=== PATIENT | female | born 1980 | race Caucasian/White ===

== ENCOUNTER 2016-10-27 20:07 | Emergency (ER) | payer OTHER ==
[~2016-10-27] VITALS: Ht 165.1 cm; Wt 54.4 kg
--- NOTE | 2016-10-27 20:45 | NUR ---
PT A/OX4 BREATHING EFFORTLESSLY ON ROOM AIR, PT STATES SHE HAS BEEN HVAING FLU LIKE SYMP[TOMS X 2 DAYS AND STATES SHE WAS AT AN ER YESTERDAY ANDTHEY GAVE HER COUGH MEDICINE WITH CODEINE AND TAMIFLU BUT SHE HAS NOT PICKED UP THE PRESCRIPTION, PT IN GOWN ON MONITOR, MADE AWARE WILL CONTINUE TO MONITOR.
[2016-10-27] MEDS ORDERED: ONDANSETRON 4 MG TAB.RAPDIS SL ONE (21:00)
[2016-10-27] MEDS ORDERED: NAPROXEN 250 MG TABLET PO ONE (21:00)
[2016-10-27] MEDS ORDERED: ONDANSETRON 4 MG TAB.RAPDIS ONE (21:02)
[2016-10-27] MEDS ORDERED: NAPROXEN 250 MG TABLET ONE (21:02)
[2016-10-27] MEDS ORDERED: IV SET PRIMARY 1 EA INFUS.SET MC ONE (21:10)
[2016-10-27] MEDS ORDERED: IV NS 0.9% 500 ML IV ONE (21:10)
[2016-10-27] MEDS ORDERED: IV NS 0.9% 1,000 ML BAG IV ONE (21:30)
[2016-10-27 22:07] VITALS: BP 108/72
== END 2016-10-27 22:07 | disposition home or self-care (01) ==
LOC: ER 20:09
DX: J06.9 Acute upper respiratory infection, unspecified (principal); R11.2 Nausea with vomiting, unspecified; Z88.8 Allergy status to other drugs, medicaments and biological substances; B34.9 Viral infection, unspecified
CPT/HCPCS: A4606; J7040; Q0162; Z7610

== ENCOUNTER 2016-12-10 17:09 | Inpatient (IN) | payer OTHER ==
[~2016-12-10] VITALS: Ht 162.6 cm; Wt 54.4 kg
--- NOTE | 2016-12-10 17:20 | NUR ---
lower abdominal LLQ pain/crampins since morning. nad noted. pt aao x4,amb with steady gait. rr even and unlabored. pain10/10. pt placed in gown and monitor. dr shu at bedside for eval.
[2016-12-10] MEDS ORDERED: IV NS 0.9% 1,000 ML ONE (17:26)
[2016-12-10] MEDS ORDERED: HYDROMORPHONE 1 MG/1 ML DISP.SYRIN ONE ×2 (17:26→19:06)
[2016-12-10] MEDS ORDERED: ONDANSETRON HCL/PF 4 MG/2 ML VIAL ONE ×3 (17:26→23:29)
[2016-12-10] MEDS ORDERED: IV SET PRIMARY 1 EA INFUS.SET MC ONE (17:26)
[2016-12-10] MEDS ORDERED: ONDANSETRON HCL/PF 4 MG/2 ML VIAL IVP ONE (17:30)
[2016-12-10] MEDS ORDERED: IV NS 0.9% 1,000 ML BAG IV ONE (17:30)
[2016-12-10] MEDS ORDERED: HYDROMORPHONE 1 MG/1 ML DISP.SYRIN IV ONE ×2 (17:30→19:30)
--- NOTE | 2016-12-10 17:40 | NUR ---
pelvic exam done by md and claudia stallworth
[2016-12-10 17:43] LABS: BASOPHILS # (AUTO) 0.1 /CMM (0.0-0.2); BASOPHILS % (AUTO) 0.7 % (0.0-2.0); EOSINOPHILS % (AUTO) 0.2 % (0.0-6.0); HEMATOCRIT 42 % (33-45); HEMOGLOBIN 14.5 g/dL (11.5-14.8); LYMPHOCYTES # (AUTO) 1.9 /CMM (0.8-4.8); LYMPHOCYTES % (AUTO) 15.8 % (20.0-44.0); MEAN CORPUSCULAR HEMOGLOBIN 30 PG (26.0-33.0); MEAN CORPUSCULAR HGB CONC 34 g/dl (31.0-36.0); MEAN CORPUSCULAR VOLUME 87 fL (82-100); MONOCYTES # (AUTO) 0.4 /CMM (0.1-1.30); MONOCYTES % (AUTO) 3.3 % (2.0-12.0); NEUTROPHILS # (AUTO) 9.6 /CMM (1.8-8.9); PLATELET COUNT (AUTO) 273 /CMM (150-450); RDW COEFFICIENT OF VARIATION 12.9 (11.5-15.0); RED BLOOD CELL COUNT(AUTO) 4.85 MIL/uL (4.0-5.2)
[2016-12-10 17:54] LABS: CALCIUM, SERUM 8.7 mg/dL (8.5-10.1); CREATININE 0.9 mg/dL (0.6-1.3); POTASSIUM 3.6 mmol/L (3.5-5.1)
[2016-12-10 18:42] LABS: APPEARANCE,URINE Clear (CLEAR); BILIRUBIN,URINE Negative (NEGATIVE); BLOOD, URINE Trace-intact Ery/uL (NEGATIVE); COLOR,URINE Yellow (YELLOW); KETONES,URINE 40 (NEGATIVE); LEUKOCYTE ESTERASE ,URINE Negative (NEGATIVE); NITRITE, URINE Negative (NEGATIVE); PROTEIN,URINE Negative (NEGATIVE); UGLUCOSE Negative (NEGATIVE); UROBILINOGEN,URINE 0.2 EU/dL (0.2)
[2016-12-10 18:47] LABS: PREGNANCY TEST URINE QUAL NEGATIVE (NEGATIVE)
[2016-12-10 19:01] LABS: ADD URINE CULTURE NO; BACTERIA,URINE Few /HPF (None Seen); RBC,URINE 2-3/HPF /HPF (0-2); SQUAMOUS EPITHELIAL CELL,UR Moderate /HPF (None Seen); URINE AMORPHOUS URATE Many /HPF (None Seen); WBC,URINE 0-2 /HPF (0-3)
[2016-12-10 19:02] LABS: MUCUS,URINE Few /LPF (None Seen)
--- NOTE | 2016-12-10 19:23 | NUR ---
MEDICATED PT ORDERED
[2016-12-10] MEDS ORDERED: ONDANSETRON HCL/PF - ER 4 MG/2 ML VIAL IV ONE (21:00)
--- NOTE | 2016-12-10 21:29 | NUR ---
[facility] TRANSPORT PT TO [facility] FOR CT SCAN
--- NOTE | 2016-12-10 22:10 | NUR ---
PT RETURNED FROM CT VIA AMBULANCE
--- NOTE | 2016-12-10 22:23 | NUR ---
CALLED [facility] FOR AN UPDATE ON CT READING
--- NOTE | 2016-12-10 22:53 | NUR ---
DR IGLESIAS ON PHONE WITH DR DURANT
--- NOTE | 2016-12-10 22:56 | NUR ---
CALLED NURSING [facility] FOR [facility]
--- NOTE | 2016-12-10 23:06 | NUR ---
PAGED DR NAKUL LOCKE
[2016-12-10] MEDS ORDERED: MORPHINE SULFATE INJ 4 MG/ML DISP.SYRIN ONE (23:29)
[2016-12-10] MEDS ORDERED: ONDANSETRON HCL/PF 4 MG/2 ML VIAL IV ONE (23:30)
[2016-12-10] MEDS ORDERED: MORPHINE SULFATE INJ 2 MG/ML DISP.SYRIN IV ONE (23:30)
--- NOTE | 2016-12-10 23:36 | NUR ---
MEDICATED PT ORDERED
--- NOTE | 2016-12-10 23:38 | NUR ---
TRNASPORTED PT TO [facility] WITHOUT INCIDENT
--- NOTE | 2016-12-10 23:40 | NUR ---
MS RN ADMITTING NOTE RECEIVED PT COMING FROM ER VIA [facility], WITH ABDOMINAL PAIN, CT REVEALED OVARIAN MASS, PT WAS GIVEN DILAUDID AND MORPHINE IN THE ER, SHE STATES THAT PAIN IS UNDER CONTROL CURRENTLY, WILL ATTEND TO NEEDS PROMPTLY, SAFETY MEASURES WILL BE KEPT IN PLACE.
[2016-12-11] MEDS ORDERED: ZOLPIDEM TARTRATE 5 MG TABLET PO PRN ×3 (00:30→01:30)
[2016-12-11] MEDS ORDERED: Z GUARD REMEDY 2 OZ OINT TP PRN (00:30)
[2016-12-11] MEDS ORDERED: MAG HYDROX/AL HYDROX/SIMETH 30 ML UDC PO PRN (00:30)
[2016-12-11] MEDS ORDERED: MAGNESIUM HYDROXIDE 30 ML UDC PO PRN (00:30)
[2016-12-11] MEDS ORDERED: ACETAMINOPHEN 325 MG TABLET PO PRN (00:30)
[2016-12-11] MEDS ORDERED: ONDANSETRON HCL/PF 4 MG/2 ML VIAL IVP PRN (00:30)
[2016-12-11] MEDS ORDERED: IV D5W 50 ML IV ONE (00:38)
[2016-12-11] MEDS ORDERED: CEFTRIAXONE 1 G VIAL ONE (00:38)
[2016-12-11] MEDS ORDERED: IV SET PRIMARY PUMP SET 1 EA INFUS.SET MC ONE (00:41)
[2016-12-11] MEDS ORDERED: SECONDARY IV SET 1 EA INFUS.SET MC ONE ×2 (00:41→02:05)
[2016-12-11] MEDS ORDERED: IV NS 0.9% 250 ML IV ONE (00:42)
[2016-12-11] MEDS: CEFTRIAXONE 1 G in IV D5W 50 ML IV SCH (00:51)
[2016-12-11] MEDS ORDERED: IV NS 0.9% 1,000 ML BAG IV PRN (01:30)
[2016-12-11] MEDS ORDERED: METRONIDAZOLE 500MG/ NS 100ML 100 ML IV ONE (01:41)
[2016-12-11] MEDS ORDERED: ZOLPIDEM TARTRATE 5 MG TABLET ONE (01:44)
[2016-12-11] MEDS: METRONIDAZOLE 500MG/ NS 100ML 500 MG in PREMIX 1 EA IV SCH ×3 (01:51→21:58)
--- NOTE | 2016-12-11 06:49 | NUR ---
PT REMAINED STABLE DURING NIGHT WILL ENDORSE TO AM NURSE FOR COREY.
--- NOTE | 2016-12-11 07:30 | NUR ---
RECEIVED PT. ALERT AND ORIENTED X 3.STATES OCC. NAUSEA,BUT REFUSING MED.ADDITIONALLY STATES VERY BAD PAIN WHEN GETTING OOB.REFUSES PAIN MED.
[2016-12-11 08:00] VITALS: BP 95/58
[2016-12-11] MEDS: PANTOPRAZOLE 40 MG TABLET.DR PO SCH ×2 (09:23→09:30)
[2016-12-11 14:34] LABS: BASOPHILS % (AUTO) 0.4 % (0.0-2.0); EOSINOPHILS % (AUTO) 0.4 % (0.0-6.0); HEMATOCRIT 29 % (33-45); HEMOGLOBIN 9.8 g/dL (11.5-14.8); LYMPHOCYTES # (AUTO) 1.2 /CMM (0.8-4.8); LYMPHOCYTES % (AUTO) 15.1 % (20.0-44.0); MEAN CORPUSCULAR HEMOGLOBIN 29 PG (26.0-33.0); MEAN CORPUSCULAR HGB CONC 34 g/dl (31.0-36.0); MEAN CORPUSCULAR VOLUME 87 fL (82-100); MONOCYTES # (AUTO) 0.7 /CMM (0.1-1.30); MONOCYTES % (AUTO) 8.8 % (2.0-12.0); NEUTROPHILS % (AUTO) 75.3 % (43.0-81.0); PLATELET COUNT (AUTO) 203 /CMM (150-450); RDW COEFFICIENT OF VARIATION 13.7 (11.5-15.0); RED BLOOD CELL COUNT(AUTO) 3.35 MIL/uL (4.0-5.2)
[2016-12-11 14:43] LABS: CALCIUM, SERUM 8.1 mg/dL (8.5-10.1); CREATININE 0.9 mg/dL (0.6-1.3); POTASSIUM 3.8 mmol/L (3.5-5.1)
--- NOTE | 2016-12-11 15:30 | NUR ---
MIKAYLA MONTEMAYOR IN TO SEE PT. STATES DR. DURANT TO SEE PT.
[2016-12-11 16:00] VITALS: BP 96/59
--- NOTE | 2016-12-11 19:30 | NUR ---
MS RN INITIAL NOTE RECEIVED PT AWAKE AND ALERT, ORIENTED X4, PT IS SCHEDULE TO SEE DIGITAL PRINTER OPERATOR MARIUSZ PER [employer]OURER SIM, PT IS ANXIOUS TO SEE WHEN WILL DIGITAL PRINTER OPERATOR WILL COME IN, WILL ENQUIRE WITH DR KELSEY ABOUT ETA, PT IS CLEAN/DRY AND COMFORTABLE, SAFETY MEASURES WILL BE MAINTAINED AT ALL TIMES.
[2016-12-11 19:56] VITALS: BP 110/67
--- NOTE | 2016-12-11 20:39 | NUR ---
PT INQUIRED ABOUT LAB RESULTS, HGB WENT FROM 14.5 TO 9.8, PT BECAME CONCERNED THAT ABDOMINAL BLEEDING COULD BE HAPPENING, SHE IS REQUESTING TO BE TRANSFER TO [facility], SPOKE TO DR KELSEY REGARDING PT'S LABS AND PT'S REQUEST TO BE TRANSFERRED, DR KELSEY STATED THAT HE DOESN'T BELIEVE THERE'S ANY INDICATION OF BLEEDING, PT HAS THE OPTION TO WAIT UNTIL TOMORROW IN AM AND HAVE CASE MANAGEMENT ARRANGE FOR TRANSFER TO [facility] OR IF SHE DESIRES SHE CAN SIGN AN AMA FORM AND CAN GO TO THE [facility] ER TO BE ADMITTED.
[2016-12-11] MEDS ORDERED: MIDAZOLAM HCL 2 MG/2ML VIAL ONE (22:39)
[2016-12-11] MEDS ORDERED: ROCURONIUM BROMIDE 50 MG/5 ML ONE (22:40)
[2016-12-11] MEDS ORDERED: FENTANYL PF 100MCG/2ML AMPUL ONE (22:40)
[2016-12-11] MEDS ORDERED: SUCCINYLCHOLINE CHLORIDE 20 MG/ML VIAL ONE (22:40)
[2016-12-11] MEDS ORDERED: SEVOFLURANE 250 ML BOTTLE IH ONE (22:43)
--- NOTE | 2016-12-11 23:00 | NUR ---
DR. MARIUSZ WILSON AT BEDSIDE EXPLAINING TO PT AND FAMILY THAT SURGERY IS RECOMMENDED, PT CONSENTED TO LAPAROSCOPIC LEFT OVARIAN CYSTECTOMY, SHE WILL BE TAKEN TO SURGERY SHORTLY.
[2016-12-11 23:05] LABS: BASOPHILS % (AUTO) 0.2 % (0.0-2.0); EOSINOPHILS % (AUTO) 0.8 % (0.0-6.0); HEMATOCRIT 31 % (33-45); HEMOGLOBIN 10.4 g/dL (11.5-14.8); LYMPHOCYTES # (AUTO) 2.1 /CMM (0.8-4.8); LYMPHOCYTES % (AUTO) 31.8 % (20.0-44.0); MEAN CORPUSCULAR HEMOGLOBIN 29 PG (26.0-33.0); MEAN CORPUSCULAR HGB CONC 33 g/dl (31.0-36.0); MEAN CORPUSCULAR VOLUME 87 fL (82-100); MONOCYTES # (AUTO) 0.6 /CMM (0.1-1.30); MONOCYTES % (AUTO) 8.4 % (2.0-12.0); NEUTROPHILS # (AUTO) 3.9 /CMM (1.8-8.9); NEUTROPHILS % (AUTO) 58.8 % (43.0-81.0); PLATELET COUNT (AUTO) 207 /CMM (150-450); RDW COEFFICIENT OF VARIATION 14.1 (11.5-15.0); RED BLOOD CELL COUNT(AUTO) 3.61 MIL/uL (4.0-5.2); WHITE BLOOD COUNT (AUTO) 6.7 K/uL (4.3-11.0)
--- NOTE | 2016-12-11 23:20 | NUR ---
PT TAKEN TO SURGERY, WILL AWAIT FOR UPDATE.
[2016-12-11 23:30] LABS: INR 0.93 (0.87-1.13); PROTHROMBIN TIME 9.9 SECS (9.5-12.7)
--- NOTE | 2016-12-11 23:30 | NUR ---
DR KELSEY AT BEDSIDE EXPLAINING TO PT AND FAMILY OPTIONS FOR COURSE OF TREATMENT, HE WILL CONTACT DR DURANT TAX ANALYST TO COME AND CONSULT, PT HAS INCREASE ABDOMINAL TENDERNESS. Addendum: 12/12/16 at [id number] by BACILIO SUAREZ RN NOTE FOR [id number]
[2016-12-11] MEDS ORDERED: BUPIVACAINE MPF 0.5% W/EPI INJ 30 ML VIAL ONE (23:32)
[2016-12-11] MEDS ORDERED: HYDROMORPHONE INJ 2 MG/ML DISP.SYRIN ONE (23:40)
[2016-12-12] MEDS ORDERED: FENTANYL PF 100MCG/2ML AMPUL ONE (00:21)
[2016-12-12] MEDS ORDERED: MEPERIDINE HCL/PF 50 MG/ML DISP.SYRIN ONE (00:24)
--- NOTE | 2016-12-12 00:30 | NUR ---
PT BACK FROM SURGERY, SLEEPING BUT EASILY AROUSED, NO PAIN OR RESPIRATORY DISTRESS NOTED, WILL CONTINUE TO MONITOR CLOSELY.
[2016-12-12] MEDS ORDERED: IV LR 1000 ML 1,000 ML ONE (01:27)
[2016-12-12] MEDS ORDERED: IV SET PRIMARY PUMP SET 1 EA INFUS.SET MC ONE (01:28)
[2016-12-12] MEDS ORDERED: ONDANSETRON HCL/PF 8 MG in IV D5W 50 ML IV PRN (01:30)
[2016-12-12] MEDS ORDERED: IV LR 1000 ML 1,000 ML IV ONE (01:30)
[2016-12-12] MEDS ORDERED: SECONDARY IV SET 1 EA INFUS.SET MC ONE ×2 (01:50→06:07)
[2016-12-12] MEDS: CEFTRIAXONE 1 G in IV D5W 50 ML IV SCH (02:01)
[2016-12-12] MEDS ORDERED: LORAZEPAM INJ 2 MG/ML VIAL ONE (04:54)
[2016-12-12] MEDS ORDERED: LORAZEPAM INJ 2 MG/ML VIAL IV PRN (05:00)
--- NOTE | 2016-12-12 05:00 | NUR ---
PT STATES HAVING A PANIC ATTACK, HR RAISING UP TO 110, SHE IS REQUESTING MD CARI MADE AWARE, NEW ORDER FOR ATIVAN 0.5MG IV Q6HR PRN RECEIVED, WILL PROVIDE TO PT PROMPTLY.
[2016-12-12] MEDS: METRONIDAZOLE 500MG/ NS 100ML 500 MG in PREMIX 1 EA IV SCH ×3 (06:08→20:36)
--- NOTE | 2016-12-12 06:53 | NUR ---
MS RN CLOSING NOTE PT IS STABLE AND COMFORTABLE, STATES NO ANXIETY AFTER ATIVAN WAS PROVIDED, VITAL SIGNS WNL, NO PAIN OR RESPIRATORY DISTRESS REPORTED, ALL NEEDS HAVE BEEN MET, WILL ENDORSE TO AM NURSE FOR COREY.
[2016-12-12 06:54] LABS: HEMATOCRIT 30 % (33-45); HEMOGLOBIN 10.2 g/dL (11.5-14.8); LYMPHOCYTES # (AUTO) 0.4 /CMM (0.8-4.8); LYMPHOCYTES % (AUTO) 5.5 % (20.0-44.0); MEAN CORPUSCULAR HEMOGLOBIN 30 PG (26.0-33.0); MEAN CORPUSCULAR HGB CONC 34 g/dl (31.0-36.0); MEAN CORPUSCULAR VOLUME 88 fL (82-100); MONOCYTES # (AUTO) 0.1 /CMM (0.1-1.30); MONOCYTES % (AUTO) 1.3 % (2.0-12.0); NEUTROPHILS # (AUTO) 6.8 /CMM (1.8-8.9); NEUTROPHILS % (AUTO) 93.2 % (43.0-81.0); PLATELET COUNT (AUTO) 186 /CMM (150-450); RDW COEFFICIENT OF VARIATION 13.8 (11.5-15.0); RED BLOOD CELL COUNT(AUTO) 3.44 MIL/uL (4.0-5.2); WHITE BLOOD COUNT (AUTO) 7.3 K/uL (4.3-11.0)
[2016-12-12 07:10] LABS: CALCIUM, SERUM 7.9 mg/dL (8.5-10.1); CREATININE 0.7 mg/dL (0.6-1.3); MAGNESIUM 1.8 mg/dL (1.8-2.4)
[2016-12-12] MEDS: PANTOPRAZOLE 40 MG TABLET.DR PO SCH (07:30)
--- NOTE | 2016-12-12 07:40 | NUR ---
RN Notes Received on bed awake,alert and oriented. Not in any form of distress. Breathing is even and unlabored. With complain of crampy abdomen but decline pain medication at this time. Abdomen is soft and tender. With 3 lap incisional site with border mepilex clean and dry. no bleeding noted. Encouraged deep breathing and coughing exercises. Encouraged early ambulation.With IV access on right hand gg 22 patent and intact. With ongoing IVF of LR at 125 cc/hr infusing well. No other complain at this time.
[2016-12-12 07:45] LABS: THYROID STIMULATING HORMONE 0.894 uIU/mL (0.358-3.74)
[2016-12-12 08:00] VITALS: BP 100/51
--- NOTE | 2016-12-12 09:20 | NUR ---
RN Notes Assisted to the bathroom for early ambulation. Agreed to ambulate to the hallway later.
[2016-12-12] MEDS ORDERED: K PHOS NEUTRAL 250 MG TABLET PO ONE (12:30)
[2016-12-12] MEDS ORDERED: IV NS 0.9% 1,000 ML BAG IV PRN (13:30)
[2016-12-12] MEDS ORDERED: IV NS 0.9% 1,000 ML IV PRN (13:30)
[2016-12-12] MEDS ORDERED: IBUPROFEN 400 MG TABLET PO PRN (13:30)
[2016-12-12] MEDS: HYDROCODONE/APAP 5/325MG 1 EACH TABLET PO PRN ×2 (13:33→20:32)
[2016-12-12 16:00] VITALS: BP 118/72
[2016-12-12] MEDS: LACTOBACILLUS RHAMNOSUS GG 1 EACH CAP.SPRINK PO SCH (17:32)
--- NOTE | 2016-12-12 18:08 | NUR ---
RN Notes First day post lap ovarian cystectomy. Patient ambulatory to bathroom and to hallway, tolerating well. Geraldine given earlier with no ASE noted. Needs anticipated. No untoward symptom noted within the shift. Will endorse to registered nurse first assistant nurse for the continuity of care. Call light placed within easy reach.
--- NOTE | 2016-12-12 19:30 | NUR ---
RN NOTES RECEIVED PT. AWAKE ON BED, A/OX4, S/P LAP OVARIAN CYST REMOVAL, WITH 3 LAP INCISIONAL WITH DRESSING, DRY AND INTACT, AMBULATORY , CALL LIGHT WITHIN REACH, SIDERAILS UPX2 CONTINUE TO MONITOR
[2016-12-12 20:00] VITALS: BP 101/66
--- NOTE | 2016-12-12 20:26 | NUR ---
RN NOTES PT. IS COMPLAINING OF TERRIBLE PAIN AND TALKED TO DR. KELSEY- MORPHINE 2MG IV PRN ORDERED, ORDER NOTED AND CARRIED OUT
[2016-12-12] MEDS ORDERED: MORPHINE SULFATE INJ 2 MG/ML DISP.SYRIN IV PRN (20:30)
[2016-12-12 20:48] VITALS: BP 101/66
[2016-12-12] MEDS ORDERED: MENTHOL/CETYLPYRD (CEPACOL) 1 LOZ LOZENGE ONE (22:29)
[2016-12-12] MEDS ORDERED: MENTHOL/CETYLPYRD (CEPACOL) 1 LOZ LOZENGE PO PRN (22:30)
--- NOTE | 2016-12-12 22:30 | NUR ---
RN NOTES SPOKE TO DR. KELSEY AND INFORMED HIM REGARDING PT COMPLAINING OF SORE THROAT. DR. KELSEY ORDERED CEPACOL PO PRN, ORDER NOTED AND CARRIED OUT
--- NOTE | 2016-12-12 22:39 | NUR ---
RN NOTES COMPLAINING OF SORE THROAT- CEPACOL 1 TAB GIVEN ORDERED
[2016-12-13] MEDS: CEFTRIAXONE 1 G in IV D5W 50 ML IV SCH (00:33)
[2016-12-13] MEDS: HYDROCODONE/APAP 5/325MG 1 EACH TABLET PO PRN ×4 (05:14→21:11)
--- NOTE | 2016-12-13 05:14 | NUR ---
RN NOTES COMPLAINED OF PAIN ON SURGICAL SITE- NORCO 5/325 MG PO GIVEN ORDERED, V/S STABLE
[2016-12-13] MEDS ORDERED: NA PHOS,M-B/NA PHOS,DI-BA 1 EA ENEMA RC ONE (05:30)
--- NOTE | 2016-12-13 05:30 | NUR ---
RN NOTES PT COMPLAINED OF ABDOMINAL PAIN BECAUSE SHE CAN'T PASS GAS, I OFFERED MOM BUT PT'S WANTS ME TO CALL DR. KELSEY IF IT'S BETTER TO GET ENEMA.. SPOKE TO DR. BARRIOS AND INFORMED HIM REGARDING PT'S CONCERNED. DR. KELSEY ORDERED ENEMA X1 ORDER NOTED AND CARRIED OUT
--- NOTE | 2016-12-13 06:00 | NUR ---
RN NOTES TALKED TO THE PT. AND TOLD HER THAT THE DOCTOR ALREADY ORDERED ENEMA SINCE SHE'S REQUESTING IT. PT STATED THAT SHE'S GOING TO WAIT UNTIL THE PAIN MEDICATION KICKS IN
[2016-12-13] MEDS: METRONIDAZOLE 500MG/ NS 100ML 500 MG in PREMIX 1 EA IV SCH ×2 (06:03→12:27)
[2016-12-13 06:40] LABS: BASOPHILS % (AUTO) 0.4 % (0.0-2.0); EOSINOPHILS # (AUTO) 0.1 /CMM (0.0-0.7); EOSINOPHILS % (AUTO) 1.1 % (0.0-6.0); HEMATOCRIT 27 % (33-45); HEMOGLOBIN 9.3 g/dL (11.5-14.8); LYMPHOCYTES # (AUTO) 2.2 /CMM (0.8-4.8); MEAN CORPUSCULAR HEMOGLOBIN 30 PG (26.0-33.0); MEAN CORPUSCULAR HGB CONC 34 g/dl (31.0-36.0); MEAN CORPUSCULAR VOLUME 88 fL (82-100); MONOCYTES # (AUTO) 0.4 /CMM (0.1-1.30); MONOCYTES % (AUTO) 7.7 % (2.0-12.0); NEUTROPHILS # (AUTO) 2.8 /CMM (1.8-8.9); NEUTROPHILS % (AUTO) 50.8 % (43.0-81.0); PLATELET COUNT (AUTO) 156 /CMM (150-450); RDW COEFFICIENT OF VARIATION 13.7 (11.5-15.0); RED BLOOD CELL COUNT(AUTO) 3.13 MIL/uL (4.0-5.2); WHITE BLOOD COUNT (AUTO) 5.5 K/uL (4.3-11.0)
--- NOTE | 2016-12-13 06:45 | NUR ---
RN NOTES ASKED HER AGAIN REGARDING FLEET ENEMA BUT PT STATED THAT SHE WANTS TO SLEEP FIRST, MORNING CARE RENDERED. ENDORSED TO [facility] NURSE FOR CONTINUITY OF CARE
[2016-12-13 07:00] LABS: CALCIUM, SERUM 8.1 mg/dL (8.5-10.1); CREATININE 0.6 mg/dL (0.6-1.3); PHOSPHORUS 2.7 mg/dL (2.5-4.9); POTASSIUM 3.5 mmol/L (3.5-5.1)
--- NOTE | 2016-12-13 07:15 | NUR ---
MS RN INITIAL NOTES REPORT RECEIVED AT THE BEDSIDE. PATIENT IS SLEEPING. NO SOB OR DISTRESS NOTED AT THIS TIME. PATIENT DOES NOT APPEAR TO BE IN PAIN. BED IN A LOW POSITION, CALL LIGHT WITHIN PATIENT REACH. WILL CONTINUE TO MONITOR.
[2016-12-13 08:00] VITALS: BP 95/63
[2016-12-13] MEDS: PANTOPRAZOLE 40 MG TABLET.DR PO SCH (08:24)
[2016-12-13] MEDS: LACTOBACILLUS RHAMNOSUS GG 1 EACH CAP.SPRINK PO SCH ×2 (08:24→17:00)
[2016-12-13] MEDS ORDERED: LORA1TAB82 PO (14:43)
[2016-12-13] MEDS ORDERED: METR500T PO (14:43)
[2016-12-13] MEDS ORDERED: CIPR-262 PO (14:43)
[2016-12-13] MEDS ORDERED: HYDR-3326 PO (14:43)
--- NOTE | 2016-12-13 15:12 | NUR ---
MS RN NOTES PATIENT CLEARED FOR D/C. PATIENT STATES THAT SHE DOES NOT HAVE A RIDE HOME UNTIL AFTER 7PM T[place]MAR[place]. WILL PREPARE PATIENT FOR D/C.
[2016-12-13 16:00] VITALS: BP 104/64
--- NOTE | 2016-12-13 19:28 | NUR ---
MS RN CLOSING NOTES NO SIGNIFICANT CHANGES IN PATIENT CONDITION THROUGHOUT THE SHIFT. NO SOB OR DISTRESS NOTED AT THIS TIME. PATIENT DENIES PAIN. BED IN A LOW POSITION, CALL LIGHT WITHIN PATIENT REACH. WILL ENDORSE FOR COREY.
--- NOTE | 2016-12-13 19:29 | NUR ---
RN NOTES RECEIVED PT AWAKE, HOB ELEVATED, NO SOB, NOT IN DISTRESS, TOLERATING ROOM AIR WITH GOOD SATURATION. PT ALERT AND ORIENTED X4, PAIN AT TOLERABLE LEVEL AT THIS TIME. IV ACCESS ON RIGHT HAND PATENT AND INTACT. PT AMBULATORY, WITH STEADY GAIT. PT FOR DISCHARGE HOME, AWAITING FOR HER MOTHER TO PICK HER UP. D/C PAPERS AND EXIT CARE DONE.
[2016-12-13 20:00] VITALS: BP 101/61
--- NOTE | 2016-12-13 21:00 | NUR ---
RN NOTES MOTHER OF PT CAME TO MANAGER CONTACT THE PT. PT DRESSING UP AND VERBALIZING SHE HASN'T HAVE BOWEL MOVEMENT FOR 3-4 DAYS NOW, WILL ADMINISTER MOM.
--- NOTE | 2016-12-13 21:05 | NUR ---
RN NOTES NO BOWEL MOVEMENT FOR 3-5 DAYS, MILK OF MAGNESIA 30 ML GIVEN.
--- NOTE | 2016-12-13 21:11 | NUR ---
RN NOTES PT COMPLAINS OF PAIN 6/10, NORCO 5/325 MG TAB GIVEN PO AND TOLERATED WELL.
--- NOTE | 2016-12-13 21:25 | NUR ---
RN NOTES DISCHARGE INSTRUCTIONS WITH PRESCRIPTION GIVEN TO PT AND HER MOTHER. PAIN AT TOLERABLE LEVEL AT THIS TIME. VITAL SIGNS STABLE, AFEBRILE. IV ACCESS REMOVED , PRESSURE DRESSING APPLIED. ALL BELONGINGS SENT WITH THE PT. DISCHARGE PT VIA WHEELCHAIR WITH PRIVATE TRANSPORTATION WITH HER MOTHER.
== END 2016-12-13 22:27 | disposition home or self-care (01) | DRG 710 ==
LOC: ER 17:10 → MEDSG2 23:13
PROC: 0UB14ZZ Excision of Left Ovary, Percutaneous Endoscopic Approach (ICD-10-PCS; principal; 2016-12-11 22:45)
DX: A41.9 Sepsis, unspecified organism (principal); K66.1 Hemoperitoneum; N73.0 Acute parametritis and pelvic cellulitis; N73.1 Chronic parametritis and pelvic cellulitis; D62 Acute posthemorrhagic anemia; N73.6 Female pelvic peritoneal adhesions (postinfective); F41.9 Anxiety disorder, unspecified; N83.202 Unspecified ovarian cyst, left side
CPT/HCPCS: 36415; 76856-TC; 80048-TC; 80061-TC; 81000-TC; 82746; 83540-TC; 83735-TC; 84100-TC; 84443-TC; 84703-TC; 85025-TC; 85610-TC; 85730-TC; 86850-TC; 87081-TC; A4216; A4606; A6209; J0330; J0690; J0696; J1100; J1170; J2060; J2175; J2250; J2270; J2405; J2704; J2710; J3010; J3490; J7030; J7050; J7060; J7120; Z7610